=== PATIENT | male | born 1970 | race Caucasian/White ===

== ENCOUNTER 2021-02-14 14:21 | Outpatient (REF) | payer OTHER, SELFPAY ==
[2021-02-14 15:14] LABS: Influenza A PCR NEGATIVE (Negative); Influenza B PCR NEGATIVE (Negative); Resp Syncy Virus RNA Qual PCR NEGATIVE (Negative); SARS COV2 PCR INHOUSE NEGATIVE (Negative)
== END 2021-02-14 14:22 | disposition home or self-care (01) ==
LOC: HO.LNP 14:21
PROVIDERS: Visit Provider Family Medicine
DX: Z20.822 Contact with and (suspected) exposure to COVID-19 (principal); R09.89 Other specified symptoms and signs involving the circulatory and respiratory systems
CPT/HCPCS: 0241U

== ENCOUNTER → 2021-04-08 13:59 | Outpatient (BNVA) | payer OTHER, SELFPAY | PROVIDERS: PCP Family Medicine; Visit Provider Nurse Practitioner Family | DX: G62.9 Polyneuropathy, unspecified (principal); M19.90 Unspecified osteoarthritis, unspecified site | CPT/HCPCS: 99202 ==

== ENCOUNTER → 2021-04-16 07:52 | Outpatient (BNVA) | payer OTHER, SELFPAY | PROVIDERS: PCP Family Medicine; Visit Provider Nurse Practitioner Gerontology | DX: E11.65 Type 2 diabetes mellitus with hyperglycemia (principal); E11.42 Type 2 diabetes mellitus with diabetic polyneuropathy; E66.01 Morbid (severe) obesity due to excess calories; Z68.36 Body mass index [BMI] 36.0-36.9, adult; Z79.4 Long term (current) use of insulin | CPT/HCPCS: 82947; 99212 ==

== ENCOUNTER 2021-07-02 13:35 | Outpatient (REF) | payer OTHER, SELFPAY ==
[2021-07-02 14:44] LABS: Influenza A PCR NEGATIVE (Negative); Influenza B PCR NEGATIVE (Negative); Resp Syncy Virus RNA Qual PCR NEGATIVE (Negative); SARS COV2 PCR INHOUSE NEGATIVE (Negative)
== END 2021-07-02 13:36 | disposition home or self-care (01) ==
LOC: HO.LNP 13:35
PROVIDERS: Visit Provider Family Medicine
DX: R09.81 Nasal congestion (principal); Z20.822 Contact with and (suspected) exposure to COVID-19
CPT/HCPCS: 0241U

== ENCOUNTER → 2021-07-10 09:33 | Outpatient (BNVA) | payer OTHER, SELFPAY | PROVIDERS: PCP Family Medicine; Visit Provider Internal Medicine | DX: G47.33 Obstructive sleep apnea (adult) (pediatric) (principal); J44.9 Chronic obstructive pulmonary disease, unspecified; J40 Bronchitis, not specified as acute or chronic; Z79.899 Other long term (current) drug therapy | CPT/HCPCS: 99202 ==

== ENCOUNTER → 2021-08-06 13:11 | Outpatient (REF) | payer OTHER, SELFPAY | LOC: HO.SL 13:11 | PROVIDERS: PCP Family Medicine; Visit Provider Internal Medicine | DX: G47.33 Obstructive sleep apnea (adult) (pediatric) (principal); G47.19 Other hypersomnia; E66.3 Overweight | CPT/HCPCS: 95806 ==

== ENCOUNTER 2021-08-11 14:23 | Outpatient (REF) | payer OTHER, SELFPAY ==
--- NOTE | 2021-08-11 16:14 | PFT_ITS ---
Forced vital capacity, FEV1, YXH25-55 are normal. MVV is moderately decreased, but improves after bronchodilator therapy. Total lung capacity and residual volume normal. Diffusion capacity normal. CONCLUSION: All flow volumes and lung volumes are normal. Also, diffusion capacity normal. So overall, this pulmonary function test is normal. Decreased MVV is probably effort related. MD HOLLY Pettit/PRATIMAL / [phone]
[2021-08-11 16:25] LABS: VBG Base Excess -0.1 mmol/L; VBG HCO3 24 mmol/L (22-26); VBG pCO2 39 mmHg; VBG pH 7.39 (7.32-7.43); VBG pO2 73 mmHg
[2021-08-11 16:26] LABS: Venous Blood Gas Refer to POC result
[2021-08-11 16:28] LABS: Alanine Aminotransferase 16 U/L (0-40); Albumin Level 4.1 g/dL (3.5-5.0); Alkaline Phosphatase 78 U/L (39-117); Anion Gap 15 (12-20); Aspartate Amino Transferase 14 U/L (5-37); Bilirubin Total 0.2 mg/dL (0.0-1.0); Blood Urea Nitrogen 25 mg/dL (9-16); Calcium 9.9 mg/dL (8.4-10.2); Carbon Dioxide 24 mmol/L (22-29); Chloride 100 mmol/L (96-108); Cholesterol 219 mg/dL; Estimated Glomerular Filt Rate > 60; Glucose Fasting 241 mg/dL (60-99); HDL Cholesterol 34 mg/dL; LDL Cholesterol Calculated 123 mg/dl; Sodium 134 mmol/L (135-145); Total Protein 7.1 g/dL (6.5-8.0); Triglycerides 312 mg/dL
[2021-08-11 16:48] LABS: Vitamin D 25-OH Total 8.4 ng/mL (>30)
[2021-08-11 16:58] LABS: Vitamin B12 299 pg/mL (200-900)
[2021-08-11 17:36] LABS: Creatinine Urine 67.52 mg/dL; Microalbum/Creatinine Ratio Ur 87.3 ug/mg cr
[2021-08-12 14:12] LABS: LDL Cholesterol Direct 144 mg/dL (<100)
== END 2021-08-11 14:24 | disposition home or self-care (01) ==
LOC: HO.RESP 14:23
PROVIDERS: Nurse Practitioner Gerontology; Visit Provider Internal Medicine
DX: J40 Bronchitis, not specified as acute or chronic (principal); J44.9 Chronic obstructive pulmonary disease, unspecified; E11.65 Type 2 diabetes mellitus with hyperglycemia; G47.33 Obstructive sleep apnea (adult) (pediatric); G47.19 Other hypersomnia; Z79.4 Long term (current) use of insulin
CPT/HCPCS: 36415; 80053; 80061; 82043; 82306; 82607; 82803; 83721; 94060; 94727; 94729; 99212

== ENCOUNTER 2021-10-30 12:34 | Outpatient (REF) | payer OTHER, SELFPAY ==
[2021-10-30 12:52] LABS: MANUAL DIFF FLAG NO
[2021-10-30 13:25] LABS: Basophils Absolute Auto 0.1 X10*3/uL (0.0-0.2); Basophils Percent Auto 0.5 % (0-2); Eosinophils Absolute Auto 0.3 X10*3/uL (0.0-0.4); Hematocrit 48.2 % (42.0-52.0); Hemoglobin 15.9 g/dl (14.0-18.0); Imm Gran Abs Auto 0.07 X10*3/uL (0.00-0.03); Imm Gran Pct Auto 0.5 % (0.0-0.4); Lymphocytes Absolute Auto 2.2 X10*3/uL (1.2-4.9); Mean Corpuscular Hemoglobin 27.5 pg (27.0-33.0); Mean Corpuscular Volume 83.4 fL (80.0-98.0); Mean Platelet Volume 10.4 fL (9.4-12.4); Monocytes Absolute Auto 0.8 X10*3/uL (0.1-1.2); Monocytes Percent Auto 6.2 % (2-11); Neutrophils Absolute Auto 9.5 x10*3/uL (2.0-8.3); Neutrophils Percent Auto 73.8 % (45-73); Platelet Count 358 X10*3/uL (160-400); Red Blood Count 5.78 X10*6/uL (4.60-5.80); Red Cell Distribution Width 14.6 % (11.0-16.0); White Blood Count 12.8 X10*3/uL (4.8-10.8)
[2021-10-30 14:22] LABS: Alanine Aminotransferase 21 U/L (0-40); Albumin Level 4.8 g/dL (3.5-5.0); Alkaline Phosphatase 83 U/L (39-117); Anion Gap 15 (12-20); Aspartate Amino Transferase 12 U/L (5-37); Bilirubin Total 0.4 mg/dL (0.0-1.0); Blood Urea Nitrogen 29 mg/dL (9-16); Calcium 10.4 mg/dL (8.4-10.2); Chloride 101 mmol/L (96-108); Estimated Glomerular Filt Rate 57; Glucose Fasting 341 mg/dL (60-99); Potassium 5.4 mmol/L (3.3-5.1); Sodium 134 mmol/L (135-145)
[2021-10-30 14:34] LABS: Carbon Dioxide 23 mmol/L (22-29)
[2021-10-30 14:49] LABS: Estimated Average Glucose 306 mg/dL; Hemoglobin A1c % 12.3 %
== END 2021-10-30 12:35 | disposition home or self-care (01) ==
LOC: HO.LAB 12:34
PROVIDERS: PCP Family Medicine; Visit Provider Family Medicine
DX: Z00.00 Encounter for general adult medical examination without abnormal findings (principal); E11.65 Type 2 diabetes mellitus with hyperglycemia
CPT/HCPCS: 36415; 80053; 83036; 85025

== ENCOUNTER 2022-02-25 17:50 | Emergency (ER) | payer OTHER, SELFPAY ==
--- NOTE | ~2022-02-25 | MR_ITS ---
EXAMINATION: MR LUMBAR SPINE WITHOUT CONTRAST CLINICAL INFORMATION: Back pain. Bowel incontinence. Cauda equina syndrome. COMPARISON: CT abdomen and pelvis from 06/16/2011. TECHNIQUE: MRI of the lumbar spine was obtained using routine sequences without contrast. FINDINGS: Normal anatomic alignment. Normal, homogeneous marrow signal throughout. The vertebral body heights are maintained. Mild degenerative disc disease at T11-T12 and T12-L1. The remaining intervertebral discs are of normal height and signal. The conus medullaris terminates at the level of L1-L2. The distal spinal cord is normal in appearance. Mild subcutaneous edema within the soft tissues of the back from L2-S1. No additional significant abnormalities of the paraspinal musculature. Limited evaluation of the intra-abdominal structures without significant abnormalities. The abdominal aorta is of normal contour and caliber. AXIAL SPINAL LEVELS: L1-L2: Normal annular contour. There is mild bilateral facet joint arthropathy. There is no neural foraminal stenosis. There is no spinal canal stenosis. L2-L3: Shallow diffuse disc bulge. There is mild bilateral facet joint arthropathy. There is no neural foraminal stenosis. There is no spinal canal stenosis. L3-L4: Normal annular contour. There is mild bilateral facet joint arthropathy. There is no neural foraminal stenosis. There is no spinal canal stenosis. L4-L5: Normal annular contour. There is mild bilateral facet joint arthropathy. There is mild bilateral neural foraminal stenosis. There is no spinal canal stenosis. L5-S1: Mild diffuse disc bulge with superimposed shallow central disc protrusion. There is mild bilateral facet joint arthropathy. There is moderate left and mild right neural foraminal stenosis. There is no spinal canal stenosis. MR/MR lumbar spine wo con IMPRESSION: Mild multilevel degenerative spondyloarthropathy of the lumbar spine as described in detail above. No overt spinal canal stenosis or nerve root compression.
[2022-02-25 18:12] VITALS: BP 110/79; PULSE 105; RESP 20; TEMP 36.2; O2SAT 93; BMI 37.3
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
[2022-02-25] MEDS: LORazepam 1 MG TABLET 2 MG PO (19:38)
[2022-02-25] MEDS: oxyCODONE HCl Immed Release 5 MG TABLET PO (19:38)
[2022-02-25 21:28] VITALS: BP 129/97; PULSE 100; RESP 20; O2SAT 94
== END 2022-02-25 22:00 | disposition left against medical advice (07) ==
PROVIDERS: Emergency Provider Internal Medicine; PCP Family Medicine
DX: M54.16 Radiculopathy, lumbar region (principal); M54.50 Low back pain, unspecified; Z79.899 Other long term (current) drug therapy; Z87.891 Personal history of nicotine dependence
CPT/HCPCS: 72148; 99284; 99285